=== PATIENT | male | born 1995 | race Caucasian/White ===

== ENCOUNTER 2017-04-08 16:31 | Emergency (ER) | payer OTHER ==
[~2017-04-08] VITALS: Ht 177.8 cm; Wt 86.2 kg
== END 2017-04-08 17:55 | disposition home or self-care (01) ==
LOC: ER 16:31
DX: F07.81 Postconcussional syndrome (principal); F17.200 Nicotine dependence, unspecified, uncomplicated
CPT/HCPCS: 96361; 96374; 96375; 99283; J1100; J1200; J1885; J2765; J7030

== ENCOUNTER 2017-05-01 01:24 | Emergency (ER) | payer OTHER ==
[2017-05-01 05:58] LABS: Influenza A Negative (NEGATIVE); Influenza B Negative (NEGATIVE)
== END 2017-05-01 03:22 | disposition home or self-care (01) ==
LOC: ER 01:24
DX: M79.1 Myalgia (principal); R50.9 Fever, unspecified; F17.200 Nicotine dependence, unspecified, uncomplicated
CPT/HCPCS: 87804; 96361; 96374; 99283; J1885; J7030